=== PATIENT | female | born 1960 | race Caucasian/White ===

== ENCOUNTER 2017-10-18 05:42 | Day surgery (SDC) | payer OTHER ==
[2017-10-18] MEDS ORDERED: VANCOMYCIN HCL/NORMAL SALINE 250 ML IV ONE (06:00)
[2017-10-18] MEDS ORDERED: LIDOCAINE 1% 5 ML SDV ID PRN (06:00)
[2017-10-18] MEDS ORDERED: LR 1,000 ML IV ONE (06:10)
[2017-10-18] MEDS ORDERED: LIDOCAINE 1% 2 ML INJ ONE (06:15)
[2017-10-18] MEDS ORDERED: MIDAZOLAM 2 MG/2 ML VIAL IVP ONE (06:56)
--- NOTE | 2017-10-18 07:00 | PDANEPAE ---
ANE History of Present Illness Sternal wire removal ANE Past Medical History - Cardiovascular History Hx Hypertension: No Hx Arrhythmias: No Hx Chest Pain: No Hx Coronary Artery / Peripheral Vascular Disease: No Hx CHF / Valvular Disease: Yes Hx Palpitations: Yes Cardiovascular History Comment: INTERMITTENT PALPITATIONS. RHEUMATIC FEVER AGE 18 - Pulmonary History Hx COPD: No Hx Asthma/Reactive Airway Disease: No Hx Recent Upper Respiratory Infection: No Hx Oxygen in Use at Home: No Hx Sleep Apnea: Yes Sleep Apnea Screening Result - Last Documented: Positive - Neurologic History Hx Cerebrovascular Accident: No Hx Seizures: No Hx Dementia: No - Endocrine History Hx Diabetes: No Obesity: mild - Renal History Hx Renal Disorders: No - Liver History Hx Hepatic Disorders: No - Neurological & Psychiatric Hx Hx Neurological and Psychiatric Disorders: Yes Neurological / Psychiatric History Comment: SITUATIONAL ANXIETY. FREQUENT AM HEADACHES PAST 3 MONTHS. fibromyalgia - Cancer History Hx Cancer: No - Congenital Disorder History Hx Congenital Disorders: No - GI History GERD: mild Hx Gastrointestinal Disorders: No - Other Health History Other Health History: FIBROMYALGIA. SCOLIOSIS - Chronic Pain History Chronic Pain: Yes (GENRALIZED RELATED TO FIBROMYALGIA) - Surgical History Prior Surgeries: MEERA CARPAL TUNNEL 2008. VAG HYST WITH BSO. RT SHLDR SCOPE. SINUS ANE Review of Systems Review of Systems: - Exercise capacity METS (RN): 4 METS ANE Patient History - Allergies Allergies/Adverse Reactions: tramadol Allergy (Mild, Verified 09/07/16 14:48) Migraine celecoxib Allergy (Verified 08/13/16 15:27) gabapentin Allergy (Verified 08/13/16 15:28) ibuprofen Allergy (Verified 08/13/16 15:28) latex Allergy (Verified 08/13/16 15:28) Penicillins Allergy (Verified 08/13/16 15:27) pregabalin [From Lyrica] Allergy (Verified 08/13/16 15:28) tetracycline Allergy (Verified 08/13/16 15:27) - Home Medications Home Medications: PARoxetine CR [Paxil Cr 25mg (*)] 08/13/16 [Last Taken 10/17/17 08:00] Zovirax 5% Cream 08/16/16 [Last Taken 09/29/17] Aspirin 81mg (*) 10/11/17 [Last Taken 10/16/17 22:00] Metoprolol Tartrate [Lopressor 25 mg (*)] 10/11/17 [Last Taken 10/17/17 22:30] - NPO status NPO Since - Liquids (Date): 10/17/17 NPO Since - Liquids (Time): 00:00 NPO Since - Solids (Date): 10/17/17 NPO Since - Solids (Time): 22:30 - Anes Hx Anes Hx: no prior problems - Smoking Hx Smoking Status: Former smoker - Alcohol Use Alcohol Use: Rarely - Family Anes Hx Family Anes Hx: none ANE Labs/Vital Signs - Vital Signs Blood Pressure: 156/75 Heart Rate: 76 Respiratory Rate: 18 O2 Sat (%): 96 Height: 175.26 cm Weight: 90.718 kg ANE Physical Exam - Airway Neck exam: FROM Mallampati Score: Class 1 Mouth exam: normal dental/mouth exam - Pulmonary Pulmonary: no respiratory distress, no rales or rhonchi - Cardiovascular Cardiovascular: regular rate and rhythym - ASA Status ASA Status: II ANE Anesthesia Plan Anesthesia Plan: general endotracheal anesthesia
[2017-10-18] MEDS ORDERED: BUPIVACAINE 0.25% 30 ML SDV ONE (07:01)
--- NOTE | 2017-10-18 07:02 | PDHPUP ---
History & Physical Update H&P update statement: This history and physical update is based on an assessment of the patient which was completed after admission or registration (within 24 hours), but prior to the surgery/procedure. H&P update: H&P reviewed & patient examined, no change in patient's condition since H&P completed
[2017-10-18] MEDS ORDERED: fentaNYL 100 MCG/2 ML INJ ONE ×2 (07:08)
[2017-10-18] MEDS ORDERED: PROPOFOL/EMULSION 500 MG/50 ML BOTTLE IV ONE (07:08)
[2017-10-18] MEDS ORDERED: LIDOCAINE 2% 5 ML SDV ONE (07:08)
[2017-10-18] MEDS ORDERED: fentaNYL 100 MCG/2 ML INJ IVP PRN (08:00)
[2017-10-18] MEDS ORDERED: LR 500 ML IV PRN (08:00)
[2017-10-18] MEDS ORDERED: OXYCODONE/APAP 5/325 TAB PO PRN (08:00)
[2017-10-18] MEDS ORDERED: HYDROmorphONE/DILAUDID 1 MG/ML INJ IVP PRN (08:00)
[2017-10-18] MEDS ORDERED: NALOXONE HCL 0.4 MG/ML INJ IVP PRN (08:00)
[2017-10-18] MEDS ORDERED: ONDANSETRON 4 MG/2 ML VIAL IVP PRN (08:00)
[2017-10-18] MEDS ORDERED: HYDROCODONE/APAP 5/325 TAB PO PRN (08:00)
[2017-10-18] MEDS ORDERED: ONDANSETRON 4 MG/2 ML VIAL ONE (08:17)
[2017-10-18] MEDS ORDERED: DEXAMETHASONE 4 MG/ML VIAL ONE (08:17)
[2017-10-18 08:59] VITALS: TEMP 97.4
--- NOTE | 2017-10-18 09:09 | POSTANESTH ---
Post Anesthetic Evaluation Cardiovascular Status: Normal, Stable Respiratory Status: Normal, Stable Level of Consciousness/Mental Status: Can Participate in Eval Pain Control: Adequate, Prn Tx Ordered Nausea/Vomiting Control: Adequate, Prn Tx Ordered Complications Possibly Related to Anesthesia: None Noted
[2017-10-18 09:17] VITALS: BP 118/66; PULSE 70; RESP 14; O2SAT 96
--- NOTE | 2017-11-01 07:53 | GOP ---
[f rep st] OPERATIVE REPORT DATE OF OPERATION: 10/18/2017 SURGEON: Saul Ridley DO HIM TECH: Dominic Benitez PA-C ANESTHESIA: Linda Oleary MD PREOPERATIVE DIAGNOSIS: Protruding and uncomfortable sternal bands and wires post sternotomy. POSTOPERATIVE DIAGNOSIS: Protruding and uncomfortable sternal bands and wires post sternotomy. PROCEDURE PERFORMED: Removal of sternal bands. FINDINGS: DESCRIPTION OF PROCEDURE: Patient was brought to the operating room. Under monitored anesthetic, the chest was prepped and draped in sterile classical manner. The previous sternotomy incision was exci sed for better plastic closure. We then removed the encompassing bands and sternal wires which were protruding and uncomfortable to the patient. The wound was well healed. No evidence of sternal sepa ration. Subcutaneous tissue was closed as was the skin in the standard fashion. Patient was returne d to recovery room in stable condition. /[id number]/MODL
== END 2017-10-18 09:45 | disposition home or self-care (01) ==
LOC: FSGY 05:42
PROVIDERS: ATTEND Thoracic Surgery (Cardiothoracic Vascular Surgery)
PROC: 0PP004Z Removal of Internal Fixation Device from Sternum, Open Approach (ICD-10-PCS; principal; 2017-10-18 07:15)
DX: T81.89XA Other complications of procedures, not elsewhere classified, initial encounter (principal); R07.89 Other chest pain; Z98.890 Other specified postprocedural states; Z86.79 Personal history of other diseases of the circulatory system
CPT/HCPCS: J0171; J1100; J2250; J2405; J2704; J3010; J3370